=== PATIENT | female | born 1965 | race Two or more races ===

== ENCOUNTER 2021-01-18 10:10 | Emergency (ER) | payer OTHER ==
[~2021-01-18] VITALS: Ht 162.6 cm; Wt 63.5 kg
[2021-01-18] MEDS ORDERED: MORPHINE SULFATE 4 MG/ML SYR/VIAL IV ONE (10:30)
[2021-01-18] MEDS ORDERED: ONDANSETRON HCL 4 MG/2 ML VIAL IV ONE ×2 (10:30→16:15)
[2021-01-18 10:54] LABS: Basophils # (auto) 0.1 10 ^3/uL (0-0.2); Eosinophils # (auto) 0.1 10 ^3/uL (0-0.8); Mean Corpuscular Hgb Conc. 32.7 g/dL (32.0-36.0)
[2021-01-18 10:56] LABS: Basophils % (auto) 0.5 % (0.0-2.0); Eosinophils % (auto) 0.8 % (0.0-7.0); Hematocrit 31.9 % (36.0-46.0); Hemoglobin 10.4 g/dL (12.2-16.2); Lymphocytes # (auto) 1.8 10 ^3/uL (0.4-5.4); Lymphocytes % (auto) 14.5 % (10.0-50.0); Mean Corpuscular Hemoglobin 28.8 pg (28.0-32.0); Mean Corpuscular Volume 88.2 fL (80.0-100.0); Monocytes % (auto) 8.4 % (0.0-12.0); Neutrophils # (auto) 9.5 10 ^3/uL (1.6-8.6); Neutrophils % (auto) 75.8 % (37.0-80.0); Red Blood Cells 3.62 10^6/uL (4.0-5.20); Red Cell Distribution Width 14.5 % (11.8-14.3); White Blood Cell 12.5 10^3/uL (4.4-10.8)
[2021-01-18 11:10] LABS: Potassium 3.8 mmol/L (3.5-5.1)
[2021-01-18 11:16] LABS: Albumin 2.9 g/dL (3.4-5.0); BUN/Creatinine Ratio 5.4; Bilirubin, Total 0.3 mg/dL (0.2-1.0); Calcium 9.4 mg/dL (8.5-10.1); Total Protein 8.7 g/dL (6.4-8.2)
[2021-01-18] MEDS ORDERED: IOHEXOL 300 MG/ML 100ML BOTTLE IJ ONE (11:43)
[2021-01-18] MEDS ORDERED: KETOROLAC TROMETH 30 MG/ML 1ML VIAL IV ONE (12:30)
[2021-01-18 12:54] LABS: Urine Bacteria FEW /hpf (None Seen); Urine Blood Negative /uL (Negative); Urine Specific Gravity 1.004 (1.001-1.035); Urine WBC <1 /hpf (0 - 5)
[2021-01-18] MEDS ORDERED: GADOTERATE MEG 7.5 MMOL/15ml INJ (0.5MMOL/ml) IV ONE (14:00)
[2021-01-18] MEDS ORDERED: GADOTERATE MEG 10 MMOL/20ml INJ (0.5MMOL/ml) IV ONE (14:08)
[2021-01-18] MEDS ORDERED: HYDROmorphone HCL 2 MG/ML VL IV ONE (15:00)
[2021-01-18] MEDS ORDERED: ONDANSETRON HCL 4 MG/2 ML VIAL ONE (16:04)
[2021-01-18 16:21] VITALS: BP 113/69
[2021-01-18] MEDS ORDERED: HYDROcodone-ACET 10/325MG TAB PO ONE (16:30)
[2021-01-18] MEDS ORDERED: ONDANSETRON ODT 4 MG TAB PO ONE (17:00)
== END 2021-01-18 16:28 | disposition home or self-care (01) ==
LOC: ER 10:10
DX: N83.9 Noninflammatory disorder of ovary, fallopian tube and broad ligament, unspecified (principal); Z90.89 Acquired absence of other organs; Z88.2 Allergy status to sulfonamides
CPT/HCPCS: 36415; 70450; 73723; 74178; 76830; 76856; 80053; 81001; 83690; 85025; 96374; 96375; 96376; 99285; A9575; J1170; J1885; J2270; J2405; Q0162; Q9967